=== PATIENT | female | born 2005 | race Asian ===

== ENCOUNTER 2024-08-10 14:40 | Emergency (ER) | payer OTHER, SELFPAY ==
[2024-08-10 14:44] VITALS: BP 123/83
--- NOTE | 2024-08-10 16:15 | ED.GENMED ---
History of Present Illness
<Erlinda You MD, Resident - Last Filed: 08/10/24 22:19>
General
Chief Complaint: Fall
Source: patient and family
Time Seen by Provider: 08/10/24 15:10
History of Present Illness
History of Present Illness:
This is a 19-year-old female patient with no significant past medical history who presents to the ED after fall yesterday morning. She states that she was exiting her apartment and walking down the stairs when she tripped over 6 steps and hit her
head against the wall. She had no LOC or laceration/bleeding to the head. She states that she has had a mild headache yesterday but no other symptoms. Today morning she states that her headache started to get progressively worse and started to
have nausea. She denies any episodes of vomiting or post fall amnesia. She denies any symptoms of weakness or numbness in extremities but does feel tenderness in her left shoulder and left elbow when she hit the left side of her body against the
wall. She did not take any ybld-wem-bltbbjx pain medications thus far.
<Jyothi Crawford MD - Last Filed: 08/10/24 17:49>
History of Present Illness
History of Present Illness:
This is a 19-year-old female patient with no significant past medical history who presents to the ED after fall yesterday morning. She states that she was exiting her apartment and walking down the stairs when she tripped over 6 steps and hit her
head against the wall. She had no LOC or laceration/bleeding to the head. She states that she has had a mild headache yesterday but no other symptoms. Today morning she states that her headache started to get progressively worse and started to
have nausea. She denies any episodes of vomiting or post fall amnesia. She denies any symptoms of weakness or numbness in extremities but does feel tenderness in her left shoulder when she hit the left side of her body against the wall. She did
not take any xydb-tdz-haetigs pain medications thus far.
Past History
<Erlinda You MD, Resident - Last Filed: 08/10/24 22:19>
Past History
ED Past Medical History: None
Social History
Tobacco: Non-smoker
Alcohol: None
Employment: Student
Review of Systems
<Erlinda You MD, Resident - Last Filed: 08/10/24 22:19>
Review of Systems
All Other Systems: ROS reviewed and negative except as documented in HPI and ROS
Phy Exam
<Erlinda You MD, Resident - Last Filed: 08/10/24 22:19>
General Physical Exam
General Presentation: well appearing and no apparent distress
Cardiovascular Exam
Cardiovascular Exam: regular rate/rhythm and no murmur
Heart Sounds: normal
Pulmonary Exam
Pulmonary Exam: lungs clear, no respiratory distress and no crackles
Gastrointestinal Exam
Gastrointestinal Exam: non tender, soft and non distended
Neurological Exam
Neurological Exam: oriented x3 and no motor deficits
Musculoskeletal Exam
Musculoskeletal Exam: no edema
Skin Exam
Skin Exam: warm/dry
Psychiatric Exam
Psychiatric Exam: normal mood/affect
Course
<Erlinda You MD, Resident - Last Filed: 08/10/24 22:19>
Orders/Labs/Results
Orders:
Orders
08/10/24 16:13
Ketorolac [Toradol] 15 mg IV NOW STA
Metoclopramide [Reglan] 10 mg IV NOW STA
CR Humerus - Left Min 2 Views* Urgent
Comment:
Reason For Exam: arm pain fall
Vital Signs
Initial and Last Documented VS:
Initial Vital Signs
Temp Pulse Resp BP Pulse Ox
98 F 98 16 123/83 100
08/10/24 14:44 08/10/24 14:44 08/10/24 14:44 08/10/24 14:44 08/10/24 14:44
Last Documented Vital Signs
Temp Pulse Resp BP Pulse Ox
98 F 98 16 116/69 98
08/10/24 14:44 08/10/24 14:44 08/10/24 14:44 08/10/24 17:11 08/10/24 17:11
<Jyothi Crawford MD - Last Filed: 08/10/24 17:49>
Orders/Labs/Results
Orders:
Orders
08/10/24 16:13
Ketorolac [Toradol] 15 mg IV NOW STA
Metoclopramide [Reglan] 10 mg IV NOW STA
CR Humerus - Left Min 2 Views* Urgent
Comment:
Reason For Exam: arm pain fall
Vital Signs
Initial and Last Documented VS:
Initial Vital Signs
Temp Pulse Resp BP Pulse Ox
98 F 98 16 123/83 100
08/10/24 14:44 08/10/24 14:44 08/10/24 14:44 08/10/24 14:44 08/10/24 14:44
Last Documented Vital Signs
Temp Pulse Resp BP Pulse Ox
98 F 98 16 116/69 98
08/10/24 14:44 08/10/24 14:44 08/10/24 14:44 08/10/24 17:11 08/10/24 17:11
<Erlinda You MD, Resident - Last Filed: 08/10/24 22:19>
MDM/Problems Addressed
Differential Diagnosis Includes:
Postconcussive syndrome, migraine
MDM/Problems Addressed:
Patient is afebrile and without neurological deficit. Mild tenderness of the left shoulder joint and left elbow with minimal bruising present. No signs of head trauma present or neurological deficit along with being over 24 hours post fall, so will
not order CT head. Will order x-ray shoulder joint. Patient will be given Toradol and Reglan. Likely postconcussive syndrome. X-ray of shoulder joint unremarkable. Patient is hemodynamically stable and can be discharged. Counselled patient on
being able to continue daily normal activities.
<Jyothi Crawford MD - Last Filed: 08/10/24 17:49>
MDM/Problems Addressed
MDM/Problems Addressed:
Patient is afebrile and without neurological deficit. Mild tenderness of the left shoulder joint with minimal bruising present. No signs of head trauma present or neurological deficit along with being over 24 hours post fall, so will not order CT
head. Will order x-ray shoulder joint. Patient will be given Toradol and Reglan. Likely postconcussive syndrome. X-ray of shoulder joint unremarkable. Patient is hemodynamically stable and can be discharged. Counselled patient on being able to
continue daily normal activities.
<Erlinda You MD, Resident - Last Filed: 08/10/24 22:19>
*Critical Care Note
Total Time (30-74mins, 75-104mins- exclusive of procedures): Not Applicable
ED Attending Note
<Erlinda You MD, Resident - Last Filed: 08/10/24 22:19>
-
Portions of this chart may have been created with voice recognition software.� Occasional wrong word or��sound alike� substitutions may have occurred due to the inherent limitations of voice recognition software.
<Jyothi Crawford MD - Last Filed: 08/10/24 17:49>
ED Attending Note
Patient seen and examined by attending physician: Yes
I performed a history and physical exam of patient and discussed management with resident, I reviewed resident's note and agree with documented findings and plan of care.: Yes
ED Attending Note:
I have seen and evaluated the patient with a vitd-ai-ylel encounter. I have spoken to the resident and involved in the medical history, the physical exam, medical decision making.
Evaluation and management service: agree unless noted differently below.
Results interpretation: agree unless noted differently below.
Patient is a 19-year-old female with no past medical history of pain to the emergency department after a fall. Patient states that yesterday she was on the steps when she missed a step and fell about 6 steps. She did hit her head. She did not
lose consciousness. She was able to ambulate and felt fine afterwards. She does note some confusion around the event. She states that she woke up this morning noticed some bruising to her left shoulder and left grier. However she was able to
ambulate and use all extremities. She developed a worsening headache that to her left side where she hit it and has been slightly nauseous. She has not vomited. She is intermittently dizzy but states that it has mostly resolved. No numbness
tingling. No weakness. No chest pain or abdominal pain. She not take any medications prior to arrival. She never had a concussion before.
GENERAL: no acute distress
HEENT: atraumatic, extraocular muscles intact, no signs of entrapment, dentition intact, no other obvious trauma
NECK: no midline tenderness, normal range of motion, NEXUS criteria negative, no other obvious trauma
BACK: no midline tenderness, no other obvious trauma
CHEST: no tenderness, no flail segment, no subcutaneous emphysema, no other obvious trauma
LUNGS: clear to auscultation bilaterally
CARDIOVASCULAR: regular rate and rhythm
ABDOMEN: soft, non-tender, no masses, no other obvious trauma
PELVIS: stable, no obvious injury
EXTREMITIES: moving all extremities, distal pulses intact, no other obvious trauma, mild tenderness to the left upper humerus with associated bruising, bruising over the left elbow with no bony tenderness. Bruising over the left anterior grier with
no associated tenderness
NEUROLOGIC: awake, alert x 3, no focal deficits
Patient is a 19-year-old female presenting to the emergency department after a fall yesterday with headache nausea today. Vitals are unremarkable and exam does show scattered bruising with bony tenderness over her left shoulder. Likely
postconcussive. Less likely to be traumatic intracranial injury given that she is almost 24 hours out after her fall and she is not on a blood thinner and does not have any neurodeficits. Carroll C-spine is negative. After shared decision making
will not obtain CT scan of the head. Will obtain x-ray of the humerus. Will treat the headache and nausea. Anticipate discharge if symptoms improve.
On reevaluation patient feels much better. X-ray per my interpretation with no obvious fracture. Will discharge at this time. Strict return precautions given.
Discharge Plan
Departure
Patient Disposition: Home (Routine Discharge)
Date of Disposition: 08/10/24
Time of Disposition: 17:14
Patient with high blood pressure during this ER visit?: No
Discharge Problem:
Post concussion syndrome
Instructions: Concussion, Adult (DC)
Prescriptions:
New
ondansetron HCl 4 mg tablet
4 mg PO DAILY Qty: 2 0RF
Referrals:
All Amezquita MD [Family Provider] -
Activity Restrictions/Additional Instructions:
Experiencing symptoms such as worsening severe headache, uncontrollable nausea or vomiting, please return to the ER. Take Zofran for nausea. Can continue with normal day to day activities. Follow-up with PCP in 1 week for further monitoring.
Interventions
Interventions:
*Risk Screen - Suicide Last Done: 08/10/24 14:46
*General Assessment Last Done: 08/10/24 16:36
*Neglect/Abuse Screening Last Done: 08/10/24 14:46
ED- Fall Risk Assessment Last Done: 08/10/24 16:37
*ED COVID-19 Vaccine History Last Done: 08/10/24 16:36
*Nursing Disposition Last Done: 08/10/24 17:31
ED-Musculoskeletal Assessment Last Done: 08/10/24 16:39
ED- Neurological Assessment Last Done: 08/10/24 16:39
ED-Skin Assessment Last Done: 08/10/24 16:39
Discharge Date and Time
Discharge Date/Time: 08/10/24 17:32
Print Language: [id number]
[2024-08-10 16:36] VITALS: BMI 25.0
[2024-08-10] MEDS: REGLAN 10 MG IV (16:36)
[2024-08-10] MEDS: TORADOL 15 MG IV (16:36)
[2024-08-10 16:39] VITALS: BP 91/57
[2024-08-10 17:00] VITALS: BP 94/56
[2024-08-10 17:11] VITALS: BP 116/69
== END 2024-08-10 17:32 | disposition home or self-care (01) ==
LOC: EMR 14:40
PROVIDERS: EMERGENCY PHYSICIAN Student in an Organized Health Care Education/Training Program; FAMILY PHYSICIAN Internal Medicine
DX: F07.81 Postconcussional syndrome (principal); S40.012A Contusion of left shoulder, initial encounter; W10.9XXA Fall (on) (from) unspecified stairs and steps, initial encounter
CPT/HCPCS: 96374; 96375; 99284; 73060